=== PATIENT | female | born 2000 | race Asian ===

== ENCOUNTER 2021-03-05 11:44 | Emergency (ER) | payer BC ==
[~2021-03-05] VITALS: Ht 165.1 cm; Wt 97.5 kg
[2021-03-05 12:15] VITALS: BP 149/59
--- NOTE | 2021-03-05 12:17 | NUR ---
BILAT EAR PAIN X 3 DAYS W/ OOZING TO R EAR NOTED. DENIES CHANGE IN HEARING. RESPIRATION REGULAR AND UNLABORED. WILL CONTINUE TO MONITOR THE PATIENT.
[2021-03-05] MEDS ORDERED: GUAI600T53 PO (12:25)
[2021-03-05] MEDS ORDERED: AMOX-430 PO (12:25)
== END 2021-03-05 12:33 | disposition home or self-care (01) ==
LOC: ER 11:44
DX: H66.91 Otitis media, unspecified, right ear (principal)